=== PATIENT | male | born 1970 | race Caucasian/White ===

== ENCOUNTER → 2022-08-15 | Outpatient (CLI) | payer OTHER ==
--- NOTE | 2022-08-18 06:39 | MR ---
EXAMINATION TYPE: MR Prostate wo/w con DATE OF EXAM: 08/15/2022 COMPARISON: None. INDICATION: Elevated PSA, Family hx of prostate cancer PSA: 1.09 ng/ml on March 31, 2022 Recent Biopsy and Date: None. Pathology Report (If Applicable): n/a TECHNIQUE: Examination was performed using a 3T MRI without an endorectal coil. Multiparametric imaging was perf ormed with T2 mutliplanar sequences, axial diffusion weighted imaging and dynamic contrast enhanced i maging, utilizing 10 mL intravenous Gadavist gadolinium contrast. FINDINGS: PROSTATE VOLUME: 4.1 cm SI x 4.3 cm AP x 5.6 cm LR Vol= 51.7 cc PSA DENSITY: 0.02 ng/ml/cc peripheral zone shows no areas of significant diminished signal on ADC ma pping or increased signal on diffusion-weighted imaging. Fairly homogeneous increased T2 signal is no jesi. There is small central zone without area of suspicious diminished T2 signal or restricted diffus ion. Prostate capsule is maintained. Seminal vesicles are symmetric and slightly bulky. Urinary bladd er shows mild concentric wall thickening without trabeculation. No concerning pelvic adenopathy is se en. No suspicious bowel dilatation. Visualized osseous structures are intact. IMPRESSION: Enlarged prostate. A focus of clinically significant cancer is not identified. Highest Assessment Category: 1 MRI Stage: T0 N0 M0 based on review of pelvic images. False negative rates for MRI range from 5-20% depending on risk profile. Assessment Categories: 1 ? Very low (clinically significant cancer is highly unlikely to be present) 2 ? Low (clinically significant cancer is unlikely to be present) 3 ? Intermediate (the presence of clinically significant cancer is equivocal) 4 ? High (clinically significant cancer is likely to be present) 5 ? Very high (clinically significant cancer is highly likely to be present)
== END | disposition home or self-care (01) ==
LOC: RADMRIMAIN 07:50
PROVIDERS: ATTEND Urology
DX: N40.0 Benign prostatic hyperplasia without lower urinary tract symptoms (principal); R97.20 Elevated prostate specific antigen [PSA]; Z80.42 Family history of malignant neoplasm of prostate
CPT/HCPCS: 72197; A9585